=== PATIENT | male | born 1960 | race African-American/Black ===

== ENCOUNTER 2020-10-11 09:29 | Outpatient (CLI) | payer OTHER ==
[2020-10-11 10:57] LABS: Anion Gap 15 mmol/L (10-20); BUN (Urea Nitrogen) 18 mg/dL (8.4-25.7); Calc. Creatinine Clearance 0 mL/min (70-130); Calcium 9.6 mg/dL (7.8-10.44); Carbon Dioxide 22 mmol/L (22-29); Chloride 105 mmol/L (98-107); Glucose 96 mg/dL (70-105); Potassium 4.2 mmol/L (3.5-5.1); Sodium 138 mmol/L (136-145)
[2020-10-11 11:43] LABS: Cardiac Risk 4.8 (Less than 4.5); LDL Cholesterol, Calculated 126 mg/dL
[2020-10-11 13:14] LABS: Cholesterol 223 mg/dl (< 200 Desired); HDL Cholesterol 45 mg/dL (>60 Neg Risk); Triglycerides 261 mg/dL (Less than 150)
== END 2020-10-11 09:30 | disposition home or self-care (01) ==
LOC: NAV LAB 09:29
PROVIDERS: ATTEND Pathology Anatomic Pathology & Clinical Pathology
DX: Z00.00 Encounter for general adult medical examination without abnormal findings (principal)
CPT/HCPCS: 80048; 80061

== ENCOUNTER 2022-12-31 08:29 | Outpatient (CLI) | payer OTHER | END 2022-12-31 08:30 | disposition home or self-care (01) | LOC: NAV RAD 08:29 | PROVIDERS: ATTEND Nurse Practitioner Family | DX: M79.641 Pain in right hand (principal) ==